=== PATIENT | male | born 1995 | race Caucasian/White ===

== ENCOUNTER 2020-10-24 14:32 | Emergency (ER) | payer BC ==
[~2020-10-24 14:32] MED LIST: CELEBREX100 MG PO; CYCLOBENZAPRINE10 MG PO
== END 2020-10-24 16:50 | disposition left against medical advice (07) ==
LOC: ER1 14:32
DX: Z53.21 Procedure and treatment not carried out due to patient leaving prior to being seen by health care provider (principal)

== ENCOUNTER 2021-01-11 04:49 | Emergency (ER) | payer BC ==
[2021-01-11] MEDS ORDERED: ZITHROMAX250 MG PO (05:20)
[2021-01-11] MEDS ORDERED: FLONASE 0.05% N16 GM (05:20)
[2021-01-11] MEDS ORDERED: ZYRTEC10 MG PO (05:20)
[2021-01-11] MEDS ORDERED: MEDROL DOSEPAK 24 MG PO (05:20)
== END 2021-01-11 05:25 | disposition home or self-care (01) ==
LOC: ER1 04:49
DX: J06.9 Acute upper respiratory infection, unspecified (principal); F17.210 Nicotine dependence, cigarettes, uncomplicated; Z88.8 Allergy status to other drugs, medicaments and biological substances
CPT/HCPCS: 96374; 96375; 99283